=== PATIENT | female | born 1940 | race Caucasian/White ===

== ENCOUNTER → 2022-12-23 20:02 | Outpatient (ROUT) | payer MEDICARE, MEDICAID, SELFPAY ==
[2022-12-23 20:32] LABS: Bilirubin Urine UA NEGATIVE (NEGATIVE); Color Urine UA YELLOW; Glucose Urine UA NEGATIVE (Negative); Ketones Urine UA NEGATIVE (NEGATIVE); Leukocyte Esterase Urine UA 2+ (NEGATIVE); Nitrite Urine UA NEGATIVE (Negative); Occult Blood Urine UA NEGATIVE (Negative); Protein Urine UA NEGATIVE (Negative); Specific Gravity Urine UA <=1.005 (1.000-1.035); Urobilinogen Urine UA 0.2 E.U./dL (0.2)
[2022-12-23 20:55] LABS: Appearance Urine UA Slightly Cloudy
[2022-12-23 20:56] LABS: Bacteria Urine Many (>30); RBC Urine None Seen (0-5/HPF); Squamous Epithelial Cell Urine 1-5 /HPF (0-5/HPF); WBC Urine 10-30/HPF (0-5/HPF)
[2022-12-23 20:57] LABS: Culture Indicated Urine Specimen Cultured
== END ==
PROVIDERS: Visit Provider Internal Medicine
DX: Z13.89 Encounter for screening for other disorder (principal)
CPT/HCPCS: 81001; 87077; 87086; 87186

== ENCOUNTER → 2023-03-25 12:16 | Outpatient (CLI) | payer MEDICARE, MEDICAID, SELFPAY ==
--- NOTE | 2023-03-25 | DI.RAD.S_ITS ---
PROCEDURE: XR CHEST 2V INDICATIONS: Pneumonia, unspecified organism TECHNIQUE: 2 views of the chest were acquired. COMPARISON: None. FINDINGS: Surgical changes and devices: None. Lungs and pleura: Hazy right basilar airspace opacity. Mediastinum: Mediastinal contours are normal. Heart size is normal. Bones and chest wall: No suspicious bony abnormalities. Soft tissues appear unremarkable. IMPRESSION: Hazy right basilar airspace opacity. In conjunction with appropriate clinical symptoms of infection or inflammation, this may represent pneumonia. However, if not clinically appropriate, mass lesion or other etiology cannot be excluded. Recommend interval follow up after appropriate therapy to document resolution. Dictated by: Jarod Joshi M.D. on 03/25/2023 at 14:18 Approved by: Jarod Joshi M.D. on 03/25/2023 at 14:18
== END ==
PROVIDERS: Referring Provider Registered Nurse; Visit Provider Registered Nurse
DX: J18.9 Pneumonia, unspecified organism (principal)
CPT/HCPCS: 71046

== ENCOUNTER 2024-04-02 07:48 | Emergency (ER) | payer MEDICARE, MEDICAID, SELFPAY ==
[2024-04-02] VITALS (9 sets, daily range): BP systolic 113–125; BP diastolic 59–89; PULSE 83–98; RESP 15–26; TEMP 37.3; O2SAT 91–93; BMI 40.4
--- NOTE | 2024-04-02 07:54 | ED.SOB ---
HPI - SOB/Dyspnea General Chief Complaint: Shortness of Breath/Dyspnea Stated Complaint: SOB Time Seen by Provider: 04/02/24 07:48 Source: patient, EMS, RN notes reviewed and old records reviewed Mode of arrival: EMS Limitations: no limitations History of Present Illness HPI Narrative: 83-year-old female history of diastolic CHF, depression, hypertension, schizophrenia, diabetes type 2, hypothyroidism, chronic respiratory failure on 2 L O2 PRN who lives at [facility]. Patient presents with complaint of increased difficulty breathing and coughing starting yesterday. No reports of fevers. Notes that her roommate was sick for the past 2 weeks and was recently hospitalized with some kind of respiratory issue. Patient states she has had nasal congestion. Denies any chest pain, does feel more short of breath over the past 24 hours. She notes a dry hacking cough. States stuff does come up but she has not seen it. Patient denies any nausea or vomiting. No issues such as diarrhea or constipation. No new urinary issues reported. Patient notes her feet has been a little bit more swollen recently. She does not use any inhalers at home but did receive a DuoNeb prior to transport with EMS. She states this was helpful. Patient states had a prior hysterectomy denies any prior cardiac surgeries or interventions. She denies tobacco, denies any regular alcohol, no recreational drugs. She is unsure who her primary care physician in his but states she has been living at [facility] for the past 2 years. She is DNR/DNI comfort focused treatment on her POLST form. Related Data Previous Rx's Medication Instructions Recorded codeine 10 mg-guaifenesin 100 mg/5 5 ml PO Q6H PRN cough #120 mL 04/02/24 mL oral liquid Allergies Allergy/AdvReac Type Severity Reaction Status Date / Time No Known Drug Allergies Allergy Verified 04/02/24 08:03 Review of Systems Review of Systems ROS Unobtainable: All systems reviewed & are unremarkable except as noted in HPI and below Patient History Social History Smoking Status: Never smoker Exam Narrative Exam Narrative: GEN: Obese elderly female, alert and oriented x 3, patient appears to be in mild distress. HEENT: Atraumatic, pupils are equal round reactive to light, extraocular movements are intact, scant nasal rhinorrhea, TMs are clear with no fluid, there is no conjunctival pallor. Throat is clear without any exudates, erythema, tonsillar enlargement or uvular deviation HEART: Regular rate and rhythm without murmur, clicks, rubs. Bilateral pedal edema. LUNGS:Lungs slightly coarse but breath sounds equal auscultation, no wheezes, rales, crackles, chest moves symmetrically, no tachypnea. Patient has frequent dry cough. ABD:bowel sounds normal, soft, non-tender, no guarding, rebound, rigidity, no masses noted, no hepatosplenomegaly :No CVA tenderness MSCL: Non-tender, no muscle atrophy, muscles strength 5/5 upper and lower extremities, full range of motion NEURO:CN 2-12 intact, sensation normal Initial Vital Signs Initial Vital Signs: Vital Signs Temperature 99.1 F 04/02/24 07:51 Pulse Rate 88 04/02/24 07:51 Respiratory Rate 19 04/02/24 07:51 Blood Pressure 123/89 04/02/24 07:51 Pulse Oximetry 93 04/02/24 07:51 Oxygen Delivery Method Nasal Cannula 04/02/24 07:51 Oxygen Flow Rate 4 04/02/24 07:51 Course Orders Ordered: ED Orders 04/02/24 07:40 Complete Blood Count AUTO DIFF Stat Comprehensive Metabolic Panel Stat Lipase Stat NT-proBNP (BNP-Adult 18+) Stat Troponin & CK Cardiac Panel Stat 04/02/24 07:55 XR chest 1V Stat Respiratory Panel (Film Array) Stat EKG-12 Lead Stat Discontinued Medications Acetaminophen (Acetaminophen 325 Mg Tablet) 975 mg PO NOW ONE Stop: 04/02/24 09:26 Acetaminophen/Codeine Phosphate (Codeine/Acetaminophen 30/300 Tablet) 1 tab PO NOW ONE Stop: 04/02/24 09:32 Last Admin: 04/02/24 09:36 Dose: 1 tab Documented By: MPO Vital Signs Vital signs: Vital Signs - 8 hr 04/02/24 07:51 04/02/24 07:53 04/02/24 08:00 Temperature 99.1 F Pulse Rate 88 98 H 94 H Respiratory Rate 19 23 Blood Pressure 123/89 Pulse Oximetry 93 93 93 Oxygen Delivery Method Nasal Cannula Nasal Cannula Oxygen Flow Rate 4 4 04/02/24 08:01 04/02/24 08:01 04/02/24 08:06 Temperature Pulse Rate 94 H 92 H Respiratory Rate 26 H 24 Blood Pressure 123/89 Pulse Oximetry 91 93 Oxygen Delivery Method Nasal Cannula Nasal Cannula Oxygen Flow Rate 2 2 04/02/24 08:30 04/02/24 08:30 04/02/24 09:00 Temperature Pulse Rate 85 84 Respiratory Rate 26 H 24 Blood Pressure 125/61 Pulse Oximetry 92 92 Oxygen Delivery Method Nasal Cannula Nasal Cannula Oxygen Flow Rate 2 2 04/02/24 09:30 04/02/24 09:30 04/02/24 10:00 Temperature Pulse Rate 84 83 Respiratory Rate 23 15 Blood Pressure 113/61 Pulse Oximetry 92 93 Oxygen Delivery Method Oxygen Flow Rate 04/02/24 10:00 Temperature Pulse Rate Respiratory Rate Blood Pressure 116/59 L Pulse Oximetry Oxygen Delivery Method Oxygen Flow Rate MDM - SOB/Dyspnea Lab Data 04/02/24 07:40 04/02/24 07:40 Labs: Lab Results 04/02/24 04/02/24 Range/Units 07:40 07:55 WBC 10.1 (4.5-11.0) X10^3/uL RBC 3.37 L (4.0-5.2) X10^6/uL Hgb 10.1 L (12.0-16.0) g/dL Hct 30.6 L (36-46) % MCV 90.7 (80-100) fL MCH 30.0 (26-34) PG MCHC 33.1 (30-36) % RDW 14.3 (11.6-14.8) % Plt Count 162 (150-400) X10^3/uL Neut % (Auto) 71.3 (50-75) % Lymph % (Auto) 14.6 L (25-40) % [place] % (Auto) 10.3 (3-14) % Eos % (Auto) 3.4 (2-4) % Baso % (Auto) 0.4 (0-2) % Neut # (Auto) 7200 H (8321-3246) /uL Lymph # (Auto) 1500 (4937-3262) /uL [place] # (Auto) 1000 H (0-900) /uL Eos # (Auto) 300 (0-450) /uL Baso # (Auto) 0 (0-100) /uL Sodium 136 L (137-145) mmol/L Potassium 4.9 (3.4-5.1) mmol/L Chloride 98 (98-107) mmol/L Carbon Dioxide 33 H (22-32) mmol/L BUN 45 H (7-17) mg/dL Creatinine 2.45 H (0.52-1.04) mg/dL Estimated GFR 19 L (>60) mL/min BUN/Creatinine Ratio 18.4 (6-22) Glucose 162 H (80-110) mg/dL Calcium 8.5 (8.4-10.2) mg/dL Total Bilirubin 0.4 (0.2-1.3) mg/dL AST 31 (14-36) IU/L ALT 27 (<35) IU/L Alkaline Phosphatase 111 (38-126) U/L Total Creatine Kinase 270 H (30-135) U/L Troponin I < 0.012 (0.01-0.034) ng/mL NT-Pro-B Natriuret Pep 138 (<450) pg/mL Total Protein 6.8 (6.3-8.2) g/dL Albumin 3.7 (3.5-5.0) g/dL Globulin 3.1 (1.7-4.1) g/dL Albumin/Globulin Ratio 1.2 (1.0-2.8) Lipase 66 (23-300) U/L Chlamy pneumoniae PCR Not detected (Not Detect) Adenovirus (PCR) Not detected (Not Detect) B. pertussis DNA (PCR) Not detected (Not Detect) B.parapertussis DNA PCR Not detected (Not Detecte) Coronavirus OC43 (PCR) Not detected (Not Detect) Coronavirus HKU1 (PCR) Not detected (Not Detect) Coronavirus 229E (PCR) Not detected (Not Detect) SARS-CoV-2 (PCR) Not detected (Not Detecte) Coronavirus NL63 (PCR) Not detected (Not Detect) Human Metapneumovir PCR Not detected (Not Detect) Influenza Type A (PCR) Not detected (Not Detect) Influenza Type B (PCR) Not detected (Not Detect) M. pneumoniae (PCR) Not detected (Not Detect) Parainfluenza 1 (PCR) Not detected (Not Detect) Parainfluenza 2 (PCR) Not detected (Not Detect) Parainfluenza 3 (PCR) Not detected (Not Detect) Parainfluenza 4 (PCR) Not detected (Not Detect) RSV (PCR) Not detected (Not Detect) Entero/Rhino (PCR) Detected H (Not Detect) Imaging Data Chest x-ray: Radiologist's Impression: [address] [address] XRay Report Signed Patient: Loreto Patel MR#: [id number] : 1940 Acct:[id number] Age/Sex: 83 / F Date of Service: 04/02/24 Loc: ED Accession Number: [id number] Procedure: XR chest 1V Ordering Provider: Beronica Morton D.O. PROCEDURE: XR CHEST 1V INDICATIONS: sob, cough TECHNIQUE: One view of the chest was acquired. COMPARISON: [facility], , XR CHEST 2V, 03/25/2023, 12:22. FINDINGS: Surgical changes and devices: None. Lungs and pleura: Lungs are clear. No pleural effusions or pneumothorax. Peribronchial cuffing. Mediastinum: Mediastinal contours appear normal. Heart size is enlarged. Bones and chest wall: No suspicious bony lesions. Overlying soft tissues appear unremarkable. IMPRESSION: Peribronchial cuffing, typically indicating infectious or inflammatory bronchitis. Dictated by: Jarod Joshi M.D. on 04/02/2024 at 8:53 Approved by: Jarod Joshi M.D. on 04/02/2024 at 8:54 ECG Data Attestation: I personally reviewed and interpreted this ECG as follows: Prior ECG tracings: not available for review Interpretation: Sinus rhythm 88 KS 170 QRS 2 QTC of 7, no acute ST elevation depression noted. No priors available for comparison. MDM Narrative Medical decision making narrative: 83-year-old female suspect possible respiratory infection causing her symptoms but does have a history reported of CHF does not appear to be on any diuretics currently she does not little bit of increased swelling in her feet but also notes a dry cough which is frequent and recent exposure to her roommate who is currently hospitalized for respiratory infection. Patient received a DuoNeb prior to arrival, EMS placed her on 4 L increased from her usual 2 2 L nasal cannula. Labs show white count of 10, hemoglobin of 10, platelets of 162 no priors for comparison. Chemistries show creatinine of 2.45 no priors for comparison, BUN 45, sodium 136 potassium 4.9 chloride 98 CO2 of 33 with glucose of 162, total CK is 270 with a troponin less than 0.012 with a BNP of 138. EKG shows sinus rhythm with rate of 88 Chest x-ray shows peribronchial cuffing Respiratory panel is positive for entero/rhinovirus Patient's exam and findings do consistent with viral upper respiratory infection patient does not have significant work of breathing or concerning changes and felt appropriate for discharge home. She did request a dose of her regular pain medication. Noted hemoglobin is and creatinine is elevated at 2.45 unclear if she has priors for comparison but she was also comfort measures at this time. Patient to continue with symptomatic treatment. Patient's family is also at bedside reviewed findings she notes that the nebs that she received early this morning were not that helpful and she defers a prescription for inhaler or nebs. Her cough has been quite irritating discussed with her and family she is tolerated codeine while in the past so we will send a prescription for this. Patient's family is unsure of her normal baseline for labs reviewed these findings with them and to relay these to her physician. Discharge Plan Departure Patient Disposition: Home Clinical Impression: Rhinovirus infection, Elevated serum creatinine Activity Restrictions/Additional Instructions: You have tested positive for entero/rhinovirus, this is a viral illness that typically last 7-10 days. Your labs do show an elevation in your creatinine 2.45 and a hemoglobin of 10, I do not have any priors for comparison please share this information with your physician. You can continue your home medications as prescribed. Would continue to give Tylenol if you develop any fevers. There is also prescription for codeine with guaifenesin included for your cough. You can take 5-10 mL every 6 hours as needed. Prescription sent to [facility] pharmacy. Please return for new or concerning changes. Prescriptions: New codeine-guaifenesin 10-100 mg/5 mL liquid 5 ml PO Q6H PRN (Reason: cough) Qty: 120 0RF Stand Alone Forms: Patient Portal/API/Survey
--- NOTE | 2024-04-02 07:55 | EKG_ITS ---
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
[2024-04-02 08:03] LABS: Add Manual Diff / Slide Review NO; Basophils Absolute Auto 0 /uL (0-100); Basophils Percent Auto 0.4 % (0-2); Eosinophils Absolute Auto 300 /uL (0-450); Eosinophils Percent Auto 3.4 % (2-4); Hematocrit 30.6 % (36-46); Hemoglobin 10.1 g/dL (12.0-16.0); Lymphocytes Absolute Auto 1500 /uL (1100-4500); Lymphocytes Percent Auto 14.6 % (25-40); Mean Corpuscular HGB Conc 33.1 % (30-36); Mean Corpuscular Volume 90.7 fL (80-100); Monocytes Absolute Auto 1000 /uL (0-900); Monocytes Percent Auto 10.3 % (3-14); Neutrophils Absolute Auto 7200 /uL (1500-7000); Neutrophils Percent Auto 71.3 % (50-75); Platelet Count 162 X10^3/uL (150-400); Red Blood Cell Count 3.37 X10^6/uL (4.0-5.2); Red Cell Distribution Width 14.3 % (11.6-14.8); White Blood Cell Count 10.1 X10^3/uL (4.5-11.0)
[2024-04-02 08:13] LABS: Alanine Aminotransferase 27 IU/L (<35); Albumin 3.7 g/dL (3.5-5.0); Albumin Globulin Ratio 1.2 (1.0-2.8); Alkaline Phosphatase 111 U/L (38-126); Aspartate Aminotransferase 31 IU/L (14-36); BUN Creatinine Ratio 18.4 (6-22); Bilirubin Total 0.4 mg/dL (0.2-1.3); Blood Urea Nitrogen 45 mg/dL (7-17); Calcium 8.5 mg/dL (8.4-10.2); Carbon Dioxide 33 mmol/L (22-32); Chloride 98 mmol/L (98-107); Creatine Kinase 270 U/L (30-135); Estimated Glomerular Filt Rate 19 mL/min (>60); Globulin 3.1 g/dL (1.7-4.1); Glucose 162 mg/dL (80-110); HEMOLYSIS < 15 (0-50); Lipase 66 U/L (23-300); Potassium 4.9 mmol/L (3.4-5.1); Sodium 136 mmol/L (137-145); Total Protein 6.8 g/dL (6.3-8.2)
[2024-04-02 08:25] LABS: NT-proBNP (BNP-Adult 18+) 138 pg/mL (<450); Troponin I < 0.012 ng/mL (0.01-0.034)
[2024-04-02 09:07] LABS: Adenovirus Not Detected (Not Detect); B. parapertussis Not Detected (Not Detecte); Bordetella pertussis Not Detected (Not Detect); Chlamydophila pneumoniae Not Detected (Not Detect); Coronavirus 229E Not Detected (Not Detect); Coronavirus HKU1 Not Detected (Not Detect); Coronavirus NL 63 Not Detected (Not Detect); Coronavirus OC43 Not Detected (Not Detect); Human Metapneumovirus Not Detected (Not Detect); Human Rhinovirus/Enterovirus Detected (Not Detect); Influenza A Not Detected (Not Detect); Influenza B Not Detected (Not Detect); Mycoplasma pneumoniae Not Detected (Not Detect); Parainfluenza Virus 1 Not Detected (Not Detect); Parainfluenza Virus 2 Not Detected (Not Detect); Parainfluenza Virus 3 Not Detected (Not Detect); Parainfluenza Virus 4 Not Detected (Not Detect); Respiratory Syncytial Virus Not Detected (Not Detect); SARS- CoV-2 Not Detected (Not Detecte)
[2024-04-02] MEDS: CODEINE/ACETAMINOPHEN 30/300 TABLET 1 TAB PO (09:36)
--- NOTE | 2024-04-02 09:58 | PC.NURSE ---
Addendum entered by Mojgan Wellington R.N. 04/02/24 10:22: 1022 Pt family member arrived back to ED with pt wheelchair, pants and home o2 for pt transport back to [facility]. Multiple communication attempts made to [facility] RN to give report with no call back from [facility] staff personal finance instructor. Addendum entered by Mojgan Wellington R.N. 04/02/24 10:11: 1011 Updated family member regarding communication attempts with [facility]. Family member is going to [facility] to speak with RN about pt dc. Addendum entered by Mojgan Wellington R.N. 04/02/24 10:07: 1007 2nd Attempt to speak with [facility] staff. No answer on rn phone [phone] & [phone]. Also attempted [facility] main number and no answer. Original Note: 0958 1st attempt to speak with [facility] staff. Left message on rn phone #[phone]
== END 2024-04-02 10:38 | disposition home or self-care (01) ==
PROVIDERS: Emergency Provider Emergency Medicine
DX: B34.8 Other viral infections of unspecified site (principal); R79.89 Other specified abnormal findings of blood chemistry; R06.02 Shortness of breath; Z11.52 Encounter for screening for COVID-19
CPT/HCPCS: 36415; 71045; 80053; 82550; 83690; 83880; 84484; 85025; 87633; 93005; 99284; 99285

== ENCOUNTER → 2024-04-16 13:55 | Outpatient (CLI) | payer MEDICARE, MEDICAID, SELFPAY ==
--- NOTE | 2024-04-16 13:59 | DI.RAD.S_ITS ---
PROCEDURE: XR CHEST 2V INDICATIONS: COUGH TECHNIQUE: 2 views of the chest were acquired. COMPARISON: [facility], CR, XR CHEST 1V, 04/02/2024, 7:58. FINDINGS: Surgical changes and devices: None. Lungs and pleura: Mild increased interstitial prominence. Mediastinum: Mediastinal contours are normal. Heart size is enlarged. Bones and chest wall: No suspicious bony abnormalities. Soft tissues appear unremarkable. IMPRESSION: Mild increased interstitial prominence which could be related to edema versus pneumonia. Dictated by: Rekha Garibay M.D. on 04/16/2024 at 17:33 Approved by: Rekha Garibay M.D. on 04/16/2024 at 17:34
== END ==
PROVIDERS: Referring Provider Registered Nurse; Visit Provider Registered Nurse
DX: R05.9 Cough, unspecified (principal); R06.02 Shortness of breath; R06.00 Dyspnea, unspecified
CPT/HCPCS: 71046

== ENCOUNTER 2024-07-30 07:56 | Inpatient (IN) | payer MEDICARE, MEDICAID, SELFPAY ==
[2024-07-30] VITALS (28 sets, daily range): BP systolic 71–112; BP diastolic 42–57; PULSE 60–73; RESP 16–36; TEMP 36.3; O2SAT 87–95; BMI 40.3
--- NOTE | 2024-07-30 08:12 | EKG_ITS ---
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
--- NOTE | 2024-07-30 08:12 | DI.RAD.S_ITS ---
PROCEDURE: XR CHEST 1V INDICATIONS: chest pain TECHNIQUE: One view of the chest was acquired. COMPARISON: [facility], CR, XR CHEST 2V, 04/16/2024, 14:03. FINDINGS: Surgical changes and devices: None. Lungs and pleura: Mild pulmonary vascular congestion is seen. No definite focal infiltrate. No pleural effusions or pneumothorax. Mediastinum: Mediastinal contours appear normal. Heart size is enlarged. Bones and chest wall: No suspicious bony lesions. Overlying soft tissues appear unremarkable. IMPRESSION: Pulmonary vascular congestion. Cardiomegaly. No definite focal infiltrate. No significant pleural effusion or pneumothorax. Dictated by: Edi Griffin M.D. on 07/30/2024 at 8:49 Approved by: Edi Griffin M.D. on 07/30/2024 at 8:49
--- NOTE | 2024-07-30 08:15 | ED.GENADULT ---
HPI - General Adult General Chief complaint: Altered Mental Status Stated complaint: Unresponsive Time Seen by Provider: 07/30/24 08:12 History of Present Illness HPI narrative: 83-year-old female resident of [facility], DNR/DNI orders known, noted by staff this morning to have decreased responsiveness, and rhonchorous breath sounds, on her usual 2 L oxygen. Not known to have fallen. No other information known. RN spoke with family who are on route to the emergency department. Related Data Home Medications Medication Instructions Recorded Confirmed acetaminophen 325 mg capsule 650 mg PO Q4H PRN Pain (Scale 07/30/24 07/30/24 Score 4-6) bisacodyl 5 mg tablet 5 mg PO DAILY PRN Constipation 07/30/24 07/30/24 budesonide-formoterol HFA 80 2 inh inhalation BID 07/30/24 07/30/24 mcg-4.5 mcg/actuation aerosol inhaler camphor-menthol 0.2 %-3.5 % 1 applic topical DIRECTED PRN 07/30/24 07/30/24 topical gel Pain (Scale Score 4-6) cetirizine 10 mg capsule (Zyrtec) 10 mg PO BID PRN pruitis 07/30/24 07/30/24 ciclopirox 8 % topical solution 1 applic topical QWEEK 07/30/24 07/30/24 fluticasone propionate 50 2 spray intranasal DAILY 07/30/24 07/30/24 mcg/actuation nasal spray,suspension hydrocortisone 2.5 % lotion 1 applic topical TID PRN Rash 07/30/24 07/30/24 levothyroxine 75 mcg tablet 75 mcg PO DAILY 07/30/24 07/30/24 lisinopril 40 mg tablet 40 mg PO DAILY 07/30/24 07/30/24 lorazepam 0.5 mg tablet 0.5 mg PO BEDTIME PRN Anxiety 07/30/24 07/30/24 melatonin 3 mg tablet 6 mg PO BEDTIME PRN Insomnia 07/30/24 07/30/24 metoprolol succinate 100 mg 100 mg PO DAILY 07/30/24 07/30/24 tablet,extended release 24 hr nystatin 1 billion unit oral powder See Rx Instructions .Route 07/30/24 07/30/24 .COMPLEX PRN Rash ondansetron 4 mg disintegrating 4 mg PO Q4H PRN Nausea 07/30/24 07/30/24 tablet paroxetine HCl 10 mg tablet 10 mg PO DAILY 07/30/24 07/30/24 polyethylene glycol 3350 17 gram 17 g PO DAILY PRN Constipation 07/30/24 07/30/24 oral powder packet (Miralax) potassium chloride 10 mEq 20 meq PO DAILY 07/30/24 07/30/24 tablet,extended release risperidone 1 mg tablet 1 mg PO BID 07/30/24 07/30/24 sennosides 8.6 mg tablet (senna) 8.6 mg PO DAILY PRN Constipation 07/30/24 07/30/24 sodium chloride 0.65 % nasal spray 1 spray intranasal Q6H PRN dry 07/30/24 07/30/24 aerosol (Saline Nasal) sinus torsemide 20 mg tablet 40 mg PO DAILY 07/30/24 07/30/24 trazodone 100 mg tablet 100 mg PO BEDTIME 07/30/24 07/30/24 Allergies Allergy/AdvReac Type Severity Reaction Status Date / Time No Known Drug Allergies Allergy Verified 04/02/24 08:03 Patient History Social History household members: none Smoking Status: Never smoker alcohol intake: never Smoking Status: Never smoker alcohol intake frequency: 0-2 drinks per day Exam Narrative Exam Narrative: GENERAL: Well-developed patient, in mild distress. HEAD: Atraumatic. Normocephalic. EYES: Pupils equal round and reactive. Extraocular motions intact. No scleral icterus. No injection or drainage. ENT: Nose without bleeding, purulent drainage. Throat without erythema, tonsillar hypertrophy or exudate. Airway patent. NECK: Trachea midline. Non tender CARDIOVASCULAR: Regular rate and rhythm without murmurs, gallops, or rubs. RESPIRATORY: Clear to auscultation. Breath sounds equal bilaterally. Rhonchorous breath sounds, no audible wheeze. GASTROINTESTINAL: Abdomen soft, non-tender, nondistended. EXTREMITIES: No edema or joint tenderness. BACK: Nontender without deformity or crepitance. No flank tenderness. NEURO: Decreased responsiveness, unclear baseline, family not yet arrived. GCS, E1V2M5 =8. No posturing. Pupils equal round. SKIN: No rash or erythema of visible areas Initial Vital Signs Initial Vital Signs: Vital Signs Pulse Rate 69 07/30/24 08:01 Pulse Oximetry 90 L 07/30/24 08:01 Course Orders Ordered: Atropine Sulfate (Atropine 1% Ophth) 2 drops SL Q2HR PRN PRN Reason: Secretions Last Admin: 07/30/24 15:23 Dose: 2 drops Documented By: ZOEY Dextrose (Dextrose 50 % In Water 25 Gm/50 Ml Syringe) 25 gm IV PRN PRN PRN Reason: Hypoglycemia Last Admin: 07/30/24 09:29 Dose: 25 gm Documented By: SPF Diphenhydramine HCl (Diphenhydramine 50 Mg/Ml Vial) 50 mg IV Q4HR PRN PRN Reason: Itching Lorazepam (Lorazepam 2 Mg/Ml Inj) 1 mg IV Q1HR PRN PRN Reason: Agitation/Anxiety Last Admin: 07/30/24 15:17 Dose: 1 mg Documented By: ZOEY Lorazepam (Lorazepam 2 Mg/Ml Inj) 1 mg IV Q2HR PRN PRN Reason: Nausea or Vomiting Morphine Sulfate (Morphine 10 Mg/0.5 Ml Oral Syringe) 10 mg PO Q1H PRN PRN Reason: Pain/Dyspnea Last Admin: 07/30/24 15:19 Dose: 10 mg Documented By: Admin: 07/30/24 12:30 Dose: 10 mg Documented By: ZOEY Naloxone HCl (Naloxone 0.4 Mg/Ml Vial) 0.2 mg IV Q2MIN PRN PRN Reason: Opiate Reversal Naloxone HCl (Naloxone 0.4 Mg/Ml Vial) 0.2 mg IV Q2MIN PRN PRN Reason: Opiate Reversal Ondansetron HCl (Ondansetron 4 Mg/2 Ml Inj) 4 mg IV Q4HR PRN PRN Reason: Nausea And Vomiting Scopolamine (Scopolamine 1 Patch) 1 patch TOP Q72H PRN PRN Reason: Secretions Last Admin: 07/30/24 15:17 Dose: 1 patch Documented By: ZOEY Discontinued Medications Albuterol (Albuterol 2.5 Mg/3 Ml Neb (Adult)) 2.5 mg INH NOW ONE Stop: 07/30/24 08:27 Last Admin: 07/30/24 09:05 Dose: 2.5 mg Documented By: SUMIT Albuterol (Albuterol 2.5 Mg/3 Ml Neb (Adult)) 2.5 mg INH NOW ONE Stop: 07/30/24 09:09 Last Admin: 07/30/24 10:09 Dose: 2.5 mg Documented By: SUMIT Furosemide (Furosemide 40 Mg/4 Ml Vial) 40 mg IV NOW ONE Stop: 07/30/24 09:09 Last Admin: 07/30/24 09:36 Dose: Not Given Documented By: VINCENT Sodium Chloride (Normal Saline 0.9%) 1,000 mls @ 1,000 mls/hr IV BOLUS ONE Stop: 07/30/24 09:12 Last Infusion: 07/30/24 10:40 Dose: Infused Documented By: [facility] Admin: 07/30/24 09:35 Dose: 1,000 mls/hr Documented By: VINCENT Ceftriaxone Sodium 1,000 mg/ (Sodium Chloride) 100 mls @ 200 mls/hr IV NOW ONE Stop: 07/30/24 08:48 Last Infusion: 07/30/24 10:25 Dose: Infused Documented By: [facility] Admin: 07/30/24 09:48 Dose: 200 mls/hr Documented By: VINCENT Calcium Gluconate 4.65 meq/ (Sodium Chloride) 60 mls @ 180 mls/hr IV NOW ONE Stop: 07/30/24 09:21 Last Infusion: 07/30/24 09:43 Dose: Infused Documented By: [facility] Admin: 07/30/24 09:15 Dose: 180 mls/hr Documented By: VINCENT Sodium Chloride (Normal Saline 0.9%) 1,000 mls @ 100 mls/hr IV CONT MARIMAR Last Admin: 07/30/24 11:00 Dose: 100 mls/hr Documented By: VINCENT Sodium Chloride (Normal Saline 0.9%) 1,000 mls @ 1,000 mls/hr IV BOLUS ONE Stop: 07/30/24 11:45 Last Infusion: 07/30/24 11:10 Dose: Infused Documented By: [facility] Admin: 07/30/24 10:46 Dose: 1,000 mls/hr Documented By: VINCENT Insulin Human Regular (Insulin Regular 100 Unit/Ml 3 Ml Vial) 5 unit IV NOW ONE Stop: 07/30/24 09:03 Last Admin: 07/30/24 09:27 Dose: 5 unit Documented By: VINCENT Co-signed By: Sodium Bicarbonate (Sodium Bicarb 8.4% Syringe) 50 meq IV NOW ONE Stop: 07/30/24 09:03 Last Admin: 07/30/24 09:44 Dose: 50 meq Documented By: VINCENT Vital Signs Vital signs: Vital Signs - 8 hr 07/30/24 08:01 07/30/24 08:05 07/30/24 09:05 Temperature 97.3 F L Pulse Rate 69 71 65 Respiratory Rate 16 26 H Blood Pressure 88/44 L Pulse Oximetry 90 L 92 94 Oxygen Delivery Method Nasal Cannula Nasal Cannula Oxygen Flow Rate 2 2 Fraction of Inspired Oxygen 28 Medical Decision Making Lab Data 07/30/24 08:35 07/30/24 08:35 Labs: Lab Results 07/30/24 07/30/24 Range/Units 08:22 08:35 WBC 7.4 (4.5-11.0) X10^3/uL RBC 3.08 L (4.0-5.2) X10^6/uL Hgb 9.2 L (12.0-16.0) g/dL Hct 29.0 L (36-46) % MCV 94.1 (80-100) fL MCH 29.8 (26-34) PG MCHC 31.6 (30-36) % RDW 14.9 H (11.6-14.8) % Plt Count 119 L (150-400) X10^3/uL Neut % (Auto) 90.0 H (50-75) % Lymph % (Auto) 4.0 L (25-40) % [place] % (Auto) 5.5 (3-14) % Eos % (Auto) 0.2 L (2-4) % Baso % (Auto) 0.3 (0-2) % Neut # (Auto) 6600 (3947-9962) /uL Lymph # (Auto) 300 L (3501-7146) /uL [place] # (Auto) 400 (0-900) /uL Eos # (Auto) 0 (0-450) /uL Baso # (Auto) 0 (0-100) /uL Sodium 138 (137-145) mmol/L Potassium 7.9 H* (3.4-5.1) mmol/L Chloride 104 (98-107) mmol/L Carbon Dioxide 27 (22-32) mmol/L BUN 81 H (7-17) mg/dL Creatinine 4.06 H (0.52-1.04) mg/dL Estimated GFR 10 L (>60) mL/min BUN/Creatinine Ratio 20.0 (6-22) Glucose 183 H (80-110) mg/dL Calcium 8.0 L (8.4-10.2) mg/dL Total Bilirubin 0.4 (0.2-1.3) mg/dL AST 55 H (14-36) IU/L ALT 53 H (<35) IU/L Alkaline Phosphatase 78 (38-126) U/L Total Creatine Kinase 215 H (30-135) U/L Troponin I 0.144 H* (0.01-0.034) ng/mL Total Protein 6.9 (6.3-8.2) g/dL Albumin 3.6 (3.5-5.0) g/dL Globulin 3.3 (1.7-4.1) g/dL Albumin/Globulin Ratio 1.1 (1.0-2.8) Lipase 42 (23-300) U/L Urine Color Yellow Urine Appearance Sl cloudy Urine pH 5.5 (4.5-8.0) Ur Specific [place] 1.020 (1.000-1.035) Urine Protein Negative (Negative) Urine Glucose (UA) Negative (Negative) g/dL Urine Ketones Negative (NEGATIVE) Urine Occult Blood Negative (Negative) Urine Nitrate Negative (Negative) Urine Bilirubin Negative (NEGATIVE) Urine Urobilinogen 0.2 (0.2) E.U./dL Ur Leukocyte Esterase 2+ H (NEGATIVE) Urine RBC None seen (0-5/HPF) Urine WBC 10-30/hpf H (0-5/HPF) Ur Squamous Epith Cells None seen (0-5/HPF) Ur Renal Epithelial Cell 0-1/hpf (0-1/HPF) Urine Bacteria Many (>30) H (None) Ur Culture Indicated? Specimen cultured Vol Urine Centrifuged 10ml (spun) Point of Care Testing Glucose POC 202 Point of care testing: Point of Care Testing Glucose POC 202 Imaging Data Chest x-ray: Radiologist's Impression: [address] [address] XRay Report Signed Patient: Loreto Patel MR#: [id number] : 1940 Acct:[id number] Age/Sex: 83 / F Date of Service: 07/30/24 Loc: ED Accession Number: [id number] Procedure: XR chest 1V Ordering Provider: Xiang Pollock MD PROCEDURE: XR CHEST 1V INDICATIONS: chest pain TECHNIQUE: One view of the chest was acquired. COMPARISON: [facility], CR, XR CHEST 2V, 04/16/2024, 14:03. FINDINGS: Surgical changes and devices: None. Lungs and pleura: Mild pulmonary vascular congestion is seen. No definite focal infiltrate. No pleural effusions or pneumothorax. Mediastinum: Mediastinal contours appear normal. Heart size is enlarged. Bones and chest wall: No suspicious bony lesions. Overlying soft tissues appear unremarkable. IMPRESSION: Pulmonary vascular congestion. Cardiomegaly. No definite focal infiltrate. No significant pleural effusion or pneumothorax. Dictated by: Edi Griffin M.D. on 07/30/2024 at 8:49 Approved by: Edi Griffin M.D. on 07/30/2024 at 8:49 ECG Data Attestation: I personally reviewed and interpreted this ECG as follows: Interpretation: Normal sinus rhythm with rate of 63, first-degree AV block with AR 216. QRS 84, QTC 411. No obvious ST segment elevation or depression changes. [facility] Narrative Medical decision making narrative: 83-year-old female [facility] resident sound view, DNR/DNI orders, altered mental status at facility. Rhonchorous respirations, unusual nasal cannula flow rate supplemental oxygen. No obvious craniofacial trauma. Family arriving still to help guide therapy, per phone call pre arrival with nursing they would like to have search for reversible causes. We will send labs, urinalysis, chest x-ray, COVID/flu swab for now. Catheter urine suspicious for infection, blood cultures requested, urine culture, IV ceftriaxone. Chest x-ray shows pulmonary vascular congestion, no obvious infiltrate. Cardiomegaly noted. See radiology report. Creatinine 4 elevated, potassium 7.6 elevated. IV bicarbonate, IV dextrose/insulin, IV calcium carbonate, nebulized albuterol. Some improvement mental status, will also give oral Lokelma. Son at bedside, agrees with treatment of reversible causes, reiterates DNR/DNI order, we would like treatment of reversible causes. Aware troponin is elevated, does not want transfer for cardiac catheterization. Aware that creatinine is elevated over baseline, does not want transfer for Nephrology/dialysis. We will contact hospitalist regarding treatment of reversible causes as inpatient. 0930, case discussed with Dr. Lisa hospitalist who accepts patient for admission to ICU. Critical Care Time Critical Care Time Critical Care Time: Yes Total Critical Care Time: 35 Attestation: The high probability of a clinically significant, sudden or life threatening deterioration of the [cardiopulmonary, genitourinary, renal, metabolic] system(s) required my full and direct attention, intervention and personal management. The aggregate critical care time was [35] minutes. This time is in addition to time spent performing reported procedures but includes the following: [x] Data Review and interpretation [x Patient assessment and monitoring of vital signs [x] Documentation [x] Medication orders and management Discharge Plan Departure Patient Disposition: Admitted As Inpatient Clinical Impression: Altered mental status, Hyperkalemia, Acute kidney injury, Urinary tract infection, Elevated troponin, DNR (do not resuscitate) Admit Date/Time: 07/30/24 09:33 Admit Provider: Jose Galloway
[2024-07-30 08:37] LABS: Appearance Urine UA SL CLOUDY; Bilirubin Urine UA NEGATIVE (NEGATIVE); Color Urine UA YELLOW; Glucose Urine UA NEGATIVE (Negative); Ketones Urine UA NEGATIVE (NEGATIVE); Leukocyte Esterase Urine UA 2+ (NEGATIVE); Nitrite Urine UA NEGATIVE (Negative); Occult Blood Urine UA NEGATIVE (Negative); Protein Urine UA NEGATIVE (Negative); Urobilinogen Urine UA 0.2 E.U./dL (0.2); pH Urine UA 5.5 (4.5-8.0)
[2024-07-30 08:38] LABS: Urine Volume 10mL (spun)
[2024-07-30 08:40] LABS: Bacteria Urine Many (>30); Culture Indicated Urine Specimen Cultured; RBC Urine None Seen (0-5/HPF); Renal Epithelial Cells Urine 0-1/HPF (0-1/HPF); Squamous Epithelial Cell Urine None Seen (0-5/HPF); WBC Urine 10-30/HPF (0-5/HPF)
[2024-07-30 08:46] LABS: Add Manual Diff / Slide Review NO; Basophils Absolute Auto 0 /uL (0-100); Basophils Percent Auto 0.3 % (0-2); Eosinophils Absolute Auto 0 /uL (0-450); Eosinophils Percent Auto 0.2 % (2-4); Hemoglobin 9.2 g/dL (12.0-16.0); Lymphocytes Absolute Auto 300 /uL (1100-4500); Mean Corpuscular HGB Conc 31.6 % (30-36); Mean Corpuscular Hemoglobin 29.8 PG (26-34); Mean Corpuscular Volume 94.1 fL (80-100); Monocytes Absolute Auto 400 /uL (0-900); Monocytes Percent Auto 5.5 % (3-14); Neutrophils Absolute Auto 6600 /uL (1500-7000); Platelet Count 119 X10^3/uL (150-400); Red Blood Cell Count 3.08 X10^6/uL (4.0-5.2); Red Cell Distribution Width 14.9 % (11.6-14.8); White Blood Cell Count 7.4 X10^3/uL (4.5-11.0)
[2024-07-30 08:55] LABS: Alanine Aminotransferase 53 IU/L (<35); Albumin 3.6 g/dL (3.5-5.0); Albumin Globulin Ratio 1.1 (1.0-2.8); Alkaline Phosphatase 78 U/L (38-126); Aspartate Aminotransferase 55 IU/L (14-36); Bilirubin Total 0.4 mg/dL (0.2-1.3); Blood Urea Nitrogen 81 mg/dL (7-17); Carbon Dioxide 27 mmol/L (22-32); Chloride 104 mmol/L (98-107); Creatine Kinase 215 U/L (30-135); Estimated Glomerular Filt Rate 10 mL/min (>60); Globulin 3.3 g/dL (1.7-4.1); Glucose 183 mg/dL (80-110); Lipase 42 U/L (23-300); Sodium 138 mmol/L (137-145); Total Protein 6.9 g/dL (6.3-8.2)
[2024-07-30 09:00] LABS: HEMOLYSIS 58 (0-50)
--- NOTE | 2024-07-30 09:00 | PC.NURSE ---
Pt usually A&O. Was seen by her son yesterday at the facility and Maikel (son) reports she was acting normal at that time. They had a 1 hour visit and conversation yesterday. Pt appears obtunded and lethargic. After some time pt was able to open her eyes for a few moments. I asked if pt had any pain and she said no. She was able to tell me her first name. Pt then closes her eyes and does not respond. Lung sounds course with groaning. PT baseline 2L NC and is on 3L NC currently.
[2024-07-30 09:02] LABS: Potassium 7.9 mmol/L (3.4-5.1)
[2024-07-30] MEDS: ALBUTEROL 2.5 MG/3 ML NEB (ADULT) INH ×2 (09:05→10:09)
[2024-07-30 09:08] LABS: Troponin I 0.144 ng/mL (0.01-0.034)
[2024-07-30] MEDS: CALCIUM GLUCONATE 4.65 MEQ in SODIUM CHLORIDE 0.9% 50 ML 180 MEQ IV (09:15)
[2024-07-30] MEDS: INSULIN REGULAR 100 UNIT/ML 3 ML VIAL IV (09:27)
[2024-07-30] MEDS: DEXTROSE 50 % IN WATER 25 GM/50 ML SYRINGE IV (09:29)
--- NOTE | 2024-07-30 09:30 | PC.NURSE ---
@6072 pt able to briefly respond to my questions. She denies having any pain. Not able to answer any other questions.
[2024-07-30] MEDS: SODIUM CHLORIDE 0.9% 1,000 ML 1000 ML IV ×2 (09:35→10:46)
[2024-07-30] MEDS: SODIUM BICARB 8.4% SYRINGE 50 MEQ IV (09:44)
[2024-07-30] MEDS: cefTRIAXone 1,000 MG in SODIUM CHLORIDE 0.9% 100 ML 200 MG IV (09:48)
--- NOTE | 2024-07-30 10:40 | PC.NURSE ---
@1035 Pt blood pressure hypotensive despite fluid resuscitation. Placed pt in trandelenburg position. I asked Dr. Pollock for iv fluid bolus and was told to contact Hospitalist who is in charge of patients care. I paged Dr. Galloway overhead and he immediately calls back to give a verbal order for 1L NS fluid bolus. Fluids infusing with pressure bag. @1055 Despite fluids with pressure bag pt remains hypotensive. I called back to Dr. Galloway to ask him to see the patient and have a conversation with family regarding pt's condition. @1105 Dr. Galloway at bedside and talking with patients family regarding POLST form. Pt son Maikel (POA) states to place patient on comfort measures. POLST form signed with Dr. Galloway at bedside with pt's family.
[2024-07-30 10:48] LABS: COVID-19 CEPHEID 4-PLEX PCR Negative (Negative); Influenza A - CEPHEID Flu A NEGATIVE (NEGATIVE); Influenza B - CEPHEID Flu B NEGATIVE (NEGATIVE); Respiratory Syncytial Virus Negative (Negative)
[2024-07-30] MEDS: SODIUM CHLORIDE 0.9% 1,000 ML 100 ML IV (11:00)
--- NOTE | 2024-07-30 12:04 | PC.ADMIT ---
[address] Admission Note: Pt transferred from ED to [facility] at approximately 1200. Pt obtunded, family at bedside. Pt assisted to bed from ED stretcher via slide board. Shallow breathing, pillows positioned for pressure injury prevention. Care ongoing. The patient,Loreto Patel,83 y/o, was given written information regarding hospital policies, unit procedures and contact persons. Patient's smoking status: Never smoker. Vital Signs - 8 hr 07/30/24 08:01 07/30/24 08:05 07/30/24 08:28 Temperature 97.3 F L Pulse Rate 69 71 Respiratory Rate 16 Blood Pressure 88/44 L 89/50 L Pulse Oximetry 90 L 92 Oxygen Delivery Method Nasal Cannula Oxygen Flow Rate 2 Fraction of Inspired Oxygen 07/30/24 08:28 07/30/24 08:30 07/30/24 08:30 Temperature Pulse Rate 66 66 Respiratory Rate Blood Pressure 93/53 L Pulse Oximetry 94 95 Oxygen Delivery Method Nasal Cannula Oxygen Flow Rate 3 Fraction of Inspired Oxygen 07/30/24 08:46 07/30/24 08:46 07/30/24 09:00 Temperature Pulse Rate 65 Respiratory Rate 25 H Blood Pressure 106/57 L 102/53 L Pulse Oximetry 95 Oxygen Delivery Method Oxygen Flow Rate Fraction of Inspired Oxygen 07/30/24 09:00 07/30/24 09:05 07/30/24 09:15 Temperature Pulse Rate 67 65 Respiratory Rate 36 H 26 H Blood Pressure 112/56 L Pulse Oximetry 93 94 Oxygen Delivery Method Nasal Cannula Oxygen Flow Rate 2 Fraction of Inspired Oxygen 28 07/30/24 09:15 07/30/24 09:30 07/30/24 09:30 Temperature Pulse Rate 66 66 Respiratory Rate 21 23 Blood Pressure 103/51 L Pulse Oximetry 91 90 L Oxygen Delivery Method Oxygen Flow Rate Fraction of Inspired Oxygen 07/30/24 09:43 07/30/24 09:43 07/30/24 09:45 Temperature Pulse Rate Respiratory Rate 20 Blood Pressure 94/54 L Pulse Oximetry 88 L 90 L Oxygen Delivery Method Nasal Cannula Nasal Cannula Oxygen Flow Rate 2 3 Fraction of Inspired Oxygen 07/30/24 09:45 07/30/24 10:00 07/30/24 10:01 Temperature Pulse Rate 73 65 Respiratory Rate 19 17 Blood Pressure 104/51 L Pulse Oximetry 92 95 Oxygen Delivery Method Oxygen Flow Rate Fraction of Inspired Oxygen 07/30/24 10:01 07/30/24 10:09 07/30/24 10:15 Temperature Pulse Rate 67 68 Respiratory Rate 19 18 Blood Pressure 103/53 L Pulse Oximetry 95 93 Oxygen Delivery Method Nasal Cannula Oxygen Flow Rate 2 Fraction of Inspired Oxygen 28 07/30/24 10:15 07/30/24 10:30 07/30/24 10:30 Temperature Pulse Rate 68 67 Respiratory Rate 18 24 Blood Pressure 87/50 L Pulse Oximetry 93 92 Oxygen Delivery Method Nasal Cannula Oxygen Flow Rate 3 Fraction of Inspired Oxygen 07/30/24 10:39 07/30/24 10:39 07/30/24 11:11 Temperature Pulse Rate 66 67 Respiratory Rate 21 Blood Pressure 87/50 L Pulse Oximetry 92 89 L Oxygen Delivery Method Nasal Cannula Oximask Oxygen Flow Rate 3 6 Fraction of Inspired Oxygen
--- NOTE | 2024-07-30 12:12 | P.PN_ITS ---
Subjective Subjective Interval history: A 3-year-old female brought in from long-term facility unresponsive hypotensive with suspected sepsis pyuria acute kidney injury BUN 80 creatinine 4.0 potassium 7.8 and hypotensive. Patient is unresponsive and unable to give a history. Discussed with the patient with the son and [id number] at bedside. Prognosis is grave to nil and patient is DNR. After attempt at resuscitation fluid resuscitation which was not successful at restoring normal attention patient was switched to comfort measures and pulsed was signed Exam Vital Signs (past 8 hours): - 07/30/24 08:01 07/30/24 08:05 07/30/24 08:28 Temperature 97.3 F L Pulse Rate 69 71 Respiratory Rate 16 Blood Pressure 88/44 L 89/50 L Pulse Oximetry 90 L 92 Oxygen Delivery Method Nasal Cannula Oxygen Flow Rate 2 Fraction of Inspired Oxygen 07/30/24 08:28 07/30/24 08:30 07/30/24 08:30 Temperature Pulse Rate 66 66 Respiratory Rate Blood Pressure 93/53 L Pulse Oximetry 94 95 Oxygen Delivery Method Nasal Cannula Oxygen Flow Rate 3 Fraction of Inspired Oxygen 07/30/24 08:46 07/30/24 08:46 07/30/24 09:00 Temperature Pulse Rate 65 Respiratory Rate 25 H Blood Pressure 106/57 L 102/53 L Pulse Oximetry 95 Oxygen Delivery Method Oxygen Flow Rate Fraction of Inspired Oxygen 07/30/24 09:00 07/30/24 09:05 07/30/24 09:15 Temperature Pulse Rate 67 65 Respiratory Rate 36 H 26 H Blood Pressure 112/56 L Pulse Oximetry 93 94 Oxygen Delivery Method Nasal Cannula Oxygen Flow Rate 2 Fraction of Inspired Oxygen 28 07/30/24 09:15 07/30/24 09:30 07/30/24 09:30 Temperature Pulse Rate 66 66 Respiratory Rate 21 23 Blood Pressure 103/51 L Pulse Oximetry 91 90 L Oxygen Delivery Method Oxygen Flow Rate Fraction of Inspired Oxygen 07/30/24 09:43 07/30/24 09:43 07/30/24 09:45 Temperature Pulse Rate Respiratory Rate 20 Blood Pressure 94/54 L Pulse Oximetry 88 L 90 L Oxygen Delivery Method Nasal Cannula Nasal Cannula Oxygen Flow Rate 2 3 Fraction of Inspired Oxygen 07/30/24 09:45 07/30/24 10:00 07/30/24 10:01 Temperature Pulse Rate 73 65 Respiratory Rate 19 17 Blood Pressure 104/51 L Pulse Oximetry 92 95 Oxygen Delivery Method Oxygen Flow Rate Fraction of Inspired Oxygen 07/30/24 10:01 07/30/24 10:09 07/30/24 10:15 Temperature Pulse Rate 67 68 Respiratory Rate 19 18 Blood Pressure 103/53 L Pulse Oximetry 95 93 Oxygen Delivery Method Nasal Cannula Oxygen Flow Rate 2 Fraction of Inspired Oxygen 28 07/30/24 10:15 07/30/24 10:30 07/30/24 10:30 Temperature Pulse Rate 68 67 Respiratory Rate 18 24 Blood Pressure 87/50 L Pulse Oximetry 93 92 Oxygen Delivery Method Nasal Cannula Oxygen Flow Rate 3 Fraction of Inspired Oxygen 07/30/24 10:39 07/30/24 10:39 07/30/24 10:45 Temperature Pulse Rate 66 Respiratory Rate 21 Blood Pressure 87/50 L 83/47 L Pulse Oximetry 92 Oxygen Delivery Method Nasal Cannula Oxygen Flow Rate 3 Fraction of Inspired Oxygen 07/30/24 10:45 07/30/24 10:50 07/30/24 81 creatinine 4 and potassium 7.8 10:50 Temperature Pulse Rate 64 63 Respiratory Rate 17 18 Blood Pressure 82/51 L Pulse Oximetry 94 94 Oxygen Delivery Method Nasal Cannula Oxygen Flow Rate 3 Fraction of Inspired Oxygen 07/30/24 10:55 07/30/24 10:55 07/30/24 11:00 Temperature Pulse Rate 65 62 Respiratory Rate 17 22 Blood Pressure 77/45 L Pulse Oximetry 92 88 L Oxygen Delivery Method Oxygen Flow Rate Fraction of Inspired Oxygen 07/30/24 11:00 07/30/24 11:01 07/30/24 11:01 Temperature Pulse Rate 64 Respiratory Rate 18 Blood Pressure 73/42 L 72/44 L Pulse Oximetry 88 L Oxygen Delivery Method Oxygen Flow Rate Fraction of Inspired Oxygen 07/30/24 11:05 07/30/24 11:05 07/30/24 11:10 Temperature Pulse Rate 66 60 Respiratory Rate 18 16 Blood Pressure 71/42 L Pulse Oximetry 87 L 89 L Oxygen Delivery Method Nasal Cannula Oximask Oxygen Flow Rate 3 5 Fraction of Inspired Oxygen 07/30/24 11:10 07/30/24 11:11 07/30/24 11:16 Temperature Pulse Rate 67 Respiratory Rate Blood Pressure 71/43 L 78/44 L Pulse Oximetry 89 L Oxygen Delivery Method Oximask Oxygen Flow Rate 6 Fraction of Inspired Oxygen 07/30/24 11:16 07/30/24 11:20 07/30/24 11:20 Temperature Pulse Rate 62 65 Respiratory Rate 17 25 H Blood Pressure 80/47 L Pulse Oximetry 89 L 89 L Oxygen Delivery Method Oximask Oxygen Flow Rate 5 Fraction of Inspired Oxygen 07/30/24 11:30 07/30/24 11:30 Temperature Pulse Rate 66 Respiratory Rate 18 Blood Pressure 78/44 L Pulse Oximetry 91 Oxygen Delivery Method Oximask Oxygen Flow Rate 5 Fraction of Inspired Oxygen Fraction of Inspired Oxygen 28 SaO2/FiO2 Ratio 332 Oxygen Delivery Method Oximask Oxygen Flow Rate 5 Narrative Exam Narrative: General patient appears premorbid unresponsive HEENT pupils reactive Heart sounds distant no murmurs appreciated Lungs sounds distant Scant bowel sounds Neuro patient withdraws to pain Objective Labs 07/30/24 08:35 07/30/24 08:35 Labs: Laboratory Results - last 24 hr 07/30/24 07/30/24 07/30/24 08:22 08:35 10:00 WBC 7.4 RBC 3.08 L Hgb 9.2 L Hct 29.0 L MCV 94.1 MCH 29.8 MCHC 31.6 RDW 14.9 H Plt Count 119 L Neut % (Auto) 90.0 H Lymph % (Auto) 4.0 L [place] % (Auto) 5.5 Eos % (Auto) 0.2 L Baso % (Auto) 0.3 Neut # (Auto) 6600 Lymph # (Auto) 300 L [place] # (Auto) 400 Eos # (Auto) 0 Baso # (Auto) 0 Sodium 138 Potassium 7.9 H* Chloride 104 Carbon Dioxide 27 BUN 81 H Creatinine 4.06 H Estimated GFR 10 L BUN/Creatinine Ratio 20.0 Glucose 183 H Calcium 8.0 L Total Bilirubin 0.4 AST 55 H ALT 53 H Alkaline Phosphatase 78 Total Creatine Kinase 215 H Troponin I 0.144 H* Total Protein 6.9 Albumin 3.6 Globulin 3.3 Albumin/Globulin Ratio 1.1 Lipase 42 Urine Color Yellow Urine Appearance Sl cloudy Urine pH 5.5 Ur Specific [place] 1.020 Urine Protein Negative Urine Glucose (UA) Negative Urine Ketones Negative Urine Occult Blood Negative Urine Nitrate Negative Urine Bilirubin Negative Urine Urobilinogen 0.2 Ur Leukocyte Esterase 2+ H Urine RBC None seen Urine WBC 10-30/hpf H Ur Squamous Epith Cells None seen Ur Renal Epithelial Cell 0-1/hpf Urine Bacteria Many (>30) H Ur Culture Indicated? Specimen cultured Vol Urine Centrifuged 10ml (spun) SARS-CoV-2 (PCR) Negative Influenza A (RT-PCR) Flu a negative Influenza B (RT-PCR) Flu b negative RSV (PCR) Negative PFSH Social History Smoking Status: Never smoker Assessment & Plan Assessment & Plan narrative: 83-year-old brought in from long-term facility unresponsive do not resuscitate with acute kidney injury severe hyperkalemia pyuria. After discussion with family and prognosis which is grim to nil patient was made comfort measures Time-Based Coding :: [TOTAL MINUTES] spent with patient and on the chart (including review of chart, obtaining history, exam, reviewing outside data, placing orders, documenting exam and treatment plan, and counseling patient) on [DATE]. Scores GCS [place] coma scale eye opening: None [place] coma scale verbal response: None [place] coma scale motor response: Normal flexion Jeromy coma scale total score: 6
--- NOTE | 2024-07-30 12:21 | P.HP_ITS ---
History of Present Illness History of Present Illness Date Patient Seen: 07/30/24 Chief complaint: Unresponsive Narrative: A 3-year-old female resident of [facility] facility brought in unresponsive. ED evaluation patient was found to have acute kidney injury BUN 80 creatinine 4 potassium 7.8. Patient became hypotensive in attempt to resuscitate with fluid was not successful patient continued to be hypotensive. Patient is DNR discussed with family who after understanding findings and the patient's condition and prognosis to be grave to nil patient was made comfort measures [facility] Social History Smoking Status: Never smoker Meds Home Medications and Allergies Home Medications Medication Instructions Recorded Confirmed Type codeine 10 mg-guaifenesin 100 mg/5 5 ml PO Q6H PRN cough #120 mL 04/02/24 Rx mL oral liquid Allergies Allergy/AdvReac Type Severity Reaction Status Date / Time No Known Drug Allergies Allergy Verified 04/02/24 08:03 Exam Vital Signs (past 8 hours): - 07/30/24 08:01 07/30/24 08:05 07/30/24 08:28 Temperature 97.3 F L Pulse Rate 69 71 Respiratory Rate 16 Blood Pressure 88/44 L 89/50 L Pulse Oximetry 90 L 92 Oxygen Delivery Method Nasal Cannula Oxygen Flow Rate 2 Fraction of Inspired Oxygen 07/30/24 08:28 07/30/24 08:30 07/30/24 08:30 Temperature Pulse Rate 66 66 Respiratory Rate Blood Pressure 93/53 L Pulse Oximetry 94 95 Oxygen Delivery Method Nasal Cannula Oxygen Flow Rate 3 Fraction of Inspired Oxygen 07/30/24 08:46 07/30/24 08:46 07/30/24 09:00 Temperature Pulse Rate 65 Respiratory Rate 25 H Blood Pressure 106/57 L 102/53 L Pulse Oximetry 95 Oxygen Delivery Method Oxygen Flow Rate Fraction of Inspired Oxygen 07/30/24 09:00 07/30/24 09:05 07/30/24 09:15 Temperature Pulse Rate 67 65 Respiratory Rate 36 H 26 H Blood Pressure 112/56 L Pulse Oximetry 93 94 Oxygen Delivery Method Nasal Cannula Oxygen Flow Rate 2 Fraction of Inspired Oxygen 28 07/30/24 09:15 07/30/24 09:30 07/30/24 09:30 Temperature Pulse Rate 66 66 Respiratory Rate 21 23 Blood Pressure 103/51 L Pulse Oximetry 91 90 L Oxygen Delivery Method Oxygen Flow Rate Fraction of Inspired Oxygen 07/30/24 09:43 07/30/24 09:43 07/30/24 09:45 Temperature Pulse Rate Respiratory Rate 20 Blood Pressure 94/54 L Pulse Oximetry 88 L 90 L Oxygen Delivery Method Nasal Cannula Nasal Cannula Oxygen Flow Rate 2 3 Fraction of Inspired Oxygen 07/30/24 09:45 07/30/24 10:00 07/30/24 10:01 Temperature Pulse Rate 73 65 Respiratory Rate 19 17 Blood Pressure 104/51 L Pulse Oximetry 92 95 Oxygen Delivery Method Oxygen Flow Rate Fraction of Inspired Oxygen 07/30/24 10:01 07/30/24 10:09 07/30/24 10:15 Temperature Pulse Rate 67 68 Respiratory Rate 19 18 Blood Pressure 103/53 L Pulse Oximetry 95 93 Oxygen Delivery Method Nasal Cannula Oxygen Flow Rate 2 Fraction of Inspired Oxygen 28 07/30/24 10:15 07/30/24 10:30 07/30/24 10:30 Temperature Pulse Rate 68 67 Respiratory Rate 18 24 Blood Pressure 87/50 L Pulse Oximetry 93 92 Oxygen Delivery Method Nasal Cannula Oxygen Flow Rate 3 Fraction of Inspired Oxygen 07/30/24 10:39 07/30/24 10:39 07/30/24 10:45 Temperature Pulse Rate 66 Respiratory Rate 21 Blood Pressure 87/50 L 83/47 L Pulse Oximetry 92 Oxygen Delivery Method Nasal Cannula Oxygen Flow Rate 3 Fraction of Inspired Oxygen 07/30/24 10:45 07/30/24 10:50 07/30/24 10:50 Temperature Pulse Rate 64 63 Respiratory Rate 17 18 Blood Pressure 82/51 L Pulse Oximetry 94 94 Oxygen Delivery Method Nasal Cannula Oxygen Flow Rate 3 Fraction of Inspired Oxygen 07/30/24 10:55 07/30/24 10:55 07/30/24 11:00 Temperature Pulse Rate 65 62 Respiratory Rate 17 22 Blood Pressure 77/45 L Pulse Oximetry 92 88 L Oxygen Delivery Method Oxygen Flow Rate Fraction of Inspired Oxygen 07/30/24 11:00 07/30/24 11:01 07/30/24 11:01 Temperature Pulse Rate 64 Respiratory Rate 18 Blood Pressure 73/42 L 72/44 L Pulse Oximetry 88 L Oxygen Delivery Method Oxygen Flow Rate Fraction of Inspired Oxygen 07/30/24 11:05 07/30/24 11:05 07/30/24 11:10 Temperature Pulse Rate 66 60 Respiratory Rate 18 16 Blood Pressure 71/42 L Pulse Oximetry 87 L 89 L Oxygen Delivery Method Nasal Cannula Oximask Oxygen Flow Rate 3 5 Fraction of Inspired Oxygen 07/30/24 11:10 07/30/24 11:11 07/30/24 11:16 Temperature Pulse Rate 67 Respiratory Rate Blood Pressure 71/43 L 78/44 L Pulse Oximetry 89 L Oxygen Delivery Method Oximask Oxygen Flow Rate 6 Fraction of Inspired Oxygen 07/30/24 11:16 07/30/24 11:20 07/30/24 11:20 Temperature Pulse Rate 62 65 Respiratory Rate 17 25 H Blood Pressure 80/47 L Pulse Oximetry 89 L 89 L Oxygen Delivery Method Oximask Oxygen Flow Rate 5 Fraction of Inspired Oxygen 07/30/24 11:30 07/30/24 11:30 Temperature Pulse Rate 66 Respiratory Rate 18 Blood Pressure 78/44 L Pulse Oximetry 91 Oxygen Delivery Method Oximask Oxygen Flow Rate 5 Fraction of Inspired Oxygen Fraction of Inspired Oxygen 28 SaO2/FiO2 Ratio 332 Oxygen Delivery Method Oximask Oxygen Flow Rate 5 Narrative Exam Narrative: General patient is unresponsive premorbid HEENT pupils reactive Heart sounds distant no murmurs appreciated Lung sounds distant Abdomen flat nondistended Extremities no edema Neuro unresponsive Jeromy coma score 6 Objective Labs 07/30/24 08:35 07/30/24 08:35 Labs: Laboratory Results - last 24 hr 07/30/24 07/30/24 07/30/24 08:22 08:35 10:00 WBC 7.4 RBC 3.08 L Hgb 9.2 L Hct 29.0 L MCV 94.1 MCH 29.8 MCHC 31.6 RDW 14.9 H Plt Count 119 L Neut % (Auto) 90.0 H Lymph % (Auto) 4.0 L [place] % (Auto) 5.5 Eos % (Auto) 0.2 L Baso % (Auto) 0.3 Neut # (Auto) 6600 Lymph # (Auto) 300 L [place] # (Auto) 400 Eos # (Auto) 0 Baso # (Auto) 0 Sodium 138 Potassium 7.9 H* Chloride 104 Carbon Dioxide 27 BUN 81 H Creatinine 4.06 H Estimated GFR 10 L BUN/Creatinine Ratio 20.0 Glucose 183 H Calcium 8.0 L Total Bilirubin 0.4 AST 55 H ALT 53 H Alkaline Phosphatase 78 Total Creatine Kinase 215 H Troponin I 0.144 H* Total Protein 6.9 Albumin 3.6 Globulin 3.3 Albumin/Globulin Ratio 1.1 Lipase 42 Urine Color Yellow Urine Appearance Sl cloudy Urine pH 5.5 Ur Specific [place] 1.020 Urine Protein Negative Urine Glucose (UA) Negative Urine Ketones Negative Urine Occult Blood Negative Urine Nitrate Negative Urine Bilirubin Negative Urine Urobilinogen 0.2 Ur Leukocyte Esterase 2+ H Urine RBC None seen Urine WBC 10-30/hpf H Ur Squamous Epith Cells None seen Ur Renal Epithelial Cell 0-1/hpf Urine Bacteria Many (>30) H Ur Culture Indicated? Specimen cultured Vol Urine Centrifuged 10ml (spun) SARS-CoV-2 (PCR) Negative Influenza A (RT-PCR) Flu a negative Influenza B (RT-PCR) Flu b negative RSV (PCR) Negative Assessment & Plan Assessment & Plan narrative: A 3-year-old female resident of [facility] facility unresponsive acute kidney injury and potassium 7.8. Patient will require extensive and very intensive intervention with pressors and emergent dialysis if this were to desire. However this was not discussed with patient's son and [id number] and the decision consult initially was made to have the patient comfort measures Time-Based Coding :: [TOTAL MINUTES] spent with patient and on the chart (including review of chart, obtaining history, exam, reviewing outside data, placing orders, documenting exam and treatment plan, and counseling patient) on [DATE]. Scores GCS [place] coma scale eye opening: None [place] coma scale verbal response: None [place] coma scale motor response: Normal flexion [place] coma scale total score: 6
[2024-07-30] MEDS: MORPHINE 10 MG/0.5 ML ORAL SYRINGE PO ×2 (12:30→15:19)
[2024-07-30] MEDS: SCOPOLAMINE 1 PATCH TOP (15:17)
[2024-07-30] MEDS: LORazepam 2 MG/ML INJ 1 MG IV (15:17)
[2024-07-30] MEDS: ATROPINE 1% OPHTH 2 DROPS SL (15:23)
--- NOTE | 2024-07-30 17:55 | PC.NURSE ---
Addendum entered by Catalina Martinez R.N. 07/30/24 18:59: Family at bedside, stating respirations ceased. Heart sounds auscultated for 60 seconds, no heart sounds appreciated 1855. Provider notified, charge nurse notified. Original Note: Pt treated as ordered (See MAR) for pain, discomfort, and anxiety. Family at bedside, son Maikel and [id number]. Request for [facility] by family and it's stated they will coordinate with [facility] to transport pt to a home in [place]. Family requesting to, let her rest, for final repositioning of this shift. Pt breathing shallow. Care ongoing.
--- NOTE | 2024-07-30 19:00 | P.DN_ITS ---
Discharge Summary History of Illness Narrative: A 3-year-old female resident of [facility] brought in unresponsive. ED evaluation patient was found to have acute kidney injury BUN 80 creatinine 4 potassium 7.8. Patient became hypotensive in attempt to resuscitate with fluid was not successful patient continued to be hypotensive. Patient is DNR discussed with family who after understanding findings and the patient's condition and prognosis to be grave to nil patient was made comfort measures Hospital Course Date of Admission: 07/30/24 09:33 Date of : 07/30/24 Consults: 07/30/24 11:51 Consult to Discharge Planning Routine Comment: Discharge Diagnosis: septic shock Hospital Course: 83-year-old female resident of [facility] brought in unresponsive. ED evaluation patient was found to have acute kidney injury BUN 80 creatinine 4 potassium 7.8. Patient became hypotensive in attempt to resuscitate with fluid was not successful patient continued to be hypotensive. Patient is DNR discussed with family who after understanding findings and the patient's condition and prognosis to be grave to nil patient was made comfort measures Patient at 1855 from septic shock Objective Labs 07/30/24 08:35 07/30/24 08:35 Labs: Laboratory Results - last 24 hr 07/30/24 07/30/24 07/30/24 08:22 08:35 10:00 WBC 7.4 RBC 3.08 L Hgb 9.2 L Hct 29.0 L MCV 94.1 MCH 29.8 MCHC 31.6 RDW 14.9 H Plt Count 119 L Neut % (Auto) 90.0 H Lymph % (Auto) 4.0 L [place] % (Auto) 5.5 Eos % (Auto) 0.2 L Baso % (Auto) 0.3 Neut # (Auto) 6600 Lymph # (Auto) 300 L [place] # (Auto) 400 Eos # (Auto) 0 Baso # (Auto) 0 Sodium 138 Potassium 7.9 H* Chloride 104 Carbon Dioxide 27 BUN 81 H Creatinine 4.06 H Estimated GFR 10 L BUN/Creatinine Ratio 20.0 Glucose 183 H Calcium 8.0 L Total Bilirubin 0.4 AST 55 H ALT 53 H Alkaline Phosphatase 78 Total Creatine Kinase 215 H Troponin I 0.144 H* Total Protein 6.9 Albumin 3.6 Globulin 3.3 Albumin/Globulin Ratio 1.1 Lipase 42 Urine Color Yellow Urine Appearance Sl cloudy Urine pH 5.5 Ur Specific [place] 1.020 Urine Protein Negative Urine Glucose (UA) Negative Urine Ketones Negative Urine Occult Blood Negative Urine Nitrate Negative Urine Bilirubin Negative Urine Urobilinogen 0.2 Ur Leukocyte Esterase 2+ H Urine RBC None seen Urine WBC 10-30/hpf H Ur Squamous Epith Cells None seen Ur Renal Epithelial Cell 0-1/hpf Urine Bacteria Many (>30) H Ur Culture Indicated? Specimen cultured Vol Urine Centrifuged 10ml (spun) SARS-CoV-2 (PCR) Negative Influenza A (RT-PCR) Flu a negative Influenza B (RT-PCR) Flu b negative RSV (PCR) Negative
== END 2024-07-30 20:00 | disposition expired | DRG 871 ==
LOC: ED 08:12 → AC 09:34 → ICU 10:11 → AC 11:27
PROVIDERS: Admitting Provider Internal Medicine; Emergency Provider Emergency Medicine; Referring Provider Emergency Medicine; Visit Provider Internal Medicine
DX: A41.9 Sepsis, unspecified organism (principal); R65.21 Severe sepsis with septic shock; N17.9 Acute kidney failure, unspecified; N39.0 Urinary tract infection, site not specified; E87.5 Hyperkalemia; R79.89 Other specified abnormal findings of blood chemistry; Z66 Do not resuscitate; Z51.5 Encounter for palliative care
CPT/HCPCS: 0241U; 36415; 71045; 80053; 81001; 82550; 82962; 83690; 84484; 85025; 87040; 87070; 87077; 87086; 87186; 87205; 93005; 93010; 94640; 96365; 96367; 96375; 99285; 99291; J0612; J0696; J2060; J7613